=== PATIENT | female | born 1970 | race Caucasian/White ===

== ENCOUNTER → 2017-01-13 | Outpatient (CLI) | payer OTHER | LOC: FIMAGING 08:26 | DX: Z12.31 Encounter for screening mammogram for malignant neoplasm of breast (principal) | CPT/HCPCS: G0202 ==

== ENCOUNTER → 2017-01-26 | Outpatient (CLI) | payer OTHER | LOC: FIMAGING 11:39 | DX: R92.8 Other abnormal and inconclusive findings on diagnostic imaging of breast (principal) | CPT/HCPCS: G0206 ==

== ENCOUNTER 2017-11-28 04:33 | Emergency (ER) | payer OTHER ==
--- NOTE | 2017-11-28 04:38 | EDPHY ---
H & P Time Seen by Provider: 11/28/17 04:38 HPI/ROS: HPI CHIEF COMPLAINT: Dysuria HISTORY OF PRESENT ILLNESS: 39-year-old female, presents emergency room with urinary frequency and dysuria. Bladder spasms. Denies any fever, denies any back pain, denies significant abdominal pain. She thinks she may have a urinary tract infection. Denies recent illness. This started this evening. Past Medical History: History of spontaneous pneumothorax. Past Surgical History: Denies recent surgery Social History: Denies drugs alcohol tobacco. Family History: Noncontributory ROS REVIEW OF SYSTEMS: 10 Systems were reviewed and negative with the exception of the elements mentioned in the history of present illness. Exam Constitutional triage nursing summary reviewed, vital signs reviewed, awake/ alert. Eyes normal conjunctivae and sclera, EOMI, PERRLA. HENT normal inspection, atraumatic, moist mucus membranes, no epistaxis, neck supple/ no meningismus, no raccoon eyes. Respiratory clear to auscultation bilaterally, normal breath sounds, no respiratory distress, no wheezing. Cardiovascular rate normal, regular rhythm, no murmur, no edema, distal pulses normal. Gastrointestinal soft, non-tender, no rebound, no guarding, normal bowel sounds, no distension, no pulsatile mass. Genitourinary no CVA tenderness. Musculoskeletal no midline vertebral tenderness, full range of motion, no calf swelling, no tenderness of extremities, no meningismus, good pulses, neurovascularly intact. Skin pink, warm, & dry, no rash, skin atraumatic. Neurologic awake, alert and oriented x 3, AAOx3, moves all 4 extremities equally, motor intact, sensory intact, CN II-XII intact, normal cerebellar, normal vision, normal speech. Psychiatric normal mood/affect. Heme/Lymph/Immune no lymphadenopathy. Differential Diagnosis: Includes but is not limited to in a particular order UTI, cystitis, pyelonephritis. Medical Decision Making: Plan for this patient check UA. Re-evaluation: If urinalysis shows UTI will start on Keflex and peridium. 1st dose in the emergency room. Prescriptions for the rest. Recommend drink lots of fluids stay well-hydrated Anti-inflammatory pain medicine. Return emergency room if there is worsening symptoms questions or concerns she understands and is comfortable this plan. Urinalysis reviewed. Urine culture sent. Source: Patient - Personal History Tetanus Vaccine Date: within 10 yrs - Medical/Surgical History Hx Asthma: No Hx Chronic Respiratory Disease: No Hx Diabetes: No Hx Cardiac Disease: No Hx Renal Disease: No Hx Cirrhosis: No Hx Alcoholism: No Hx HIV/AIDS: No Hx Splenectomy or Spleen Trauma: No Other PMH: allergies - Social History Smoking Status: Never smoked Constitutional: Initial Vital Signs Temperature (C) 36.7 C 11/28/17 04:35 Heart Rate 60 11/28/17 04:35 Respiratory Rate 18 11/28/17 04:35 Blood Pressure 143/75 H 11/28/17 04:35 O2 Sat (%) 100 11/28/17 04:35 O2 Delivery Mode Room Air Allergies/Adverse Reactions: No Known Allergies Allergy (Verified 09/24/17 03:48) Home Medications: Medication Instructions Recorded Trinessa Tablet 11/16/13 Cephalexin [Keflex] 500 mg PO Q6H #28 cap 11/28/17 Phenazopyridine HCl [Pyridium] 200 mg PO TID #15 tab 11/28/17 Medical Decision Making - Data Points Laboratory Results: 11/28/17 04:35 Urine Color YELLOW Urine Appearance MODERATELY TURBID Urine pH 6.0 (5.0-7.5) Ur Specific [place] 1.014 (1.002-1.030) Urine Protein 2+ H (NEGATIVE) Urine Ketones NEGATIVE (NEGATIVE) Urine Blood 3+ H (NEGATIVE) Urine Nitrate NEGATIVE (NEGATIVE) Urine Bilirubin NEGATIVE (NEGATIVE) Urine Urobilinogen NEGATIVE EU EU (0.2-1.0) Ur Leukocyte Esterase 2+ H (NEGATIVE) Urine RBC Pending Urine WBC Pending Ur Epithelial Cells Pending Urine Glucose NEGATIVE (NEGATIVE) Departure - Departure Disposition: Home, Routine, Self-Care Clinical Impression: Urinary tract infection Qualifiers: Urinary tract infection type: acute cystitis Hematuria presence: with hematuria Qualified Code(s): N30.01 - Acute cystitis with hematuria Condition: Good Instructions: Urinary Tract Infection in Women (ED) Additional Instructions: 1. Drink lots of fluids stay well-hydrated 2. Return emergency room if develops worsening symptoms questions or concerns includes vomiting, fever, back pain. Referrals: Jenni Leyva MD [Primary Care Provider] - As per Instructions Prescriptions: Cephalexin [Keflex] 500 mg PO Q6H #28 cap Phenazopyridine HCl [Pyridium] 200 mg PO TID #15 tab
[2017-11-28 04:44] VITALS: BP 143/75
[2017-11-28] MEDS ORDERED: CEPHALEXIN 500MG PREPACK#4 BTL TAKEHOME ONE ×2 (04:45→04:56)
[2017-11-28] MEDS ORDERED: PHENAZOPYRIDINE HCL 200 MG TAB PO ONE (04:45)
[2017-11-28] MEDS ORDERED: PHENAZOPYRIDINE HCL 200 MG TAB ONE (04:55)
== END 2017-11-28 05:03 | disposition home or self-care (01) ==
DX: N30.01 Acute cystitis with hematuria (principal)

== ENCOUNTER → 2018-03-23 | Outpatient (CLI) | payer OTHER | LOC: FIMAGING 09:17 | DX: Z12.31 Encounter for screening mammogram for malignant neoplasm of breast (principal); Z80.3 Family history of malignant neoplasm of breast ==